=== PATIENT | female | born 1965 | race Caucasian/White ===

== ENCOUNTER 2018-09-20 10:59 | Outpatient (CLI) | payer BC | END 2018-09-20 23:59 | disposition home or self-care (01) | LOC: CFH 10:59 | PROVIDERS: ATTEND Obstetrics & Gynecology Gynecology | DX: Z12.31 Encounter for screening mammogram for malignant neoplasm of breast (principal); Z98.82 Breast implant status | CPT/HCPCS: 77067 ==

== ENCOUNTER → 2020-01-24 | Outpatient (CLI) | payer BC | END | disposition home or self-care (01) | LOC: CFH 13:15 | PROVIDERS: ATTEND Obstetrics & Gynecology Gynecology | DX: Z12.31 Encounter for screening mammogram for malignant neoplasm of breast (principal) | CPT/HCPCS: 77067 ==